=== PATIENT | male | born 1950 | race Caucasian/White ===

== ENCOUNTER 2020-11-16 06:37 | Observation (INO) | payer MEDICARE, OTHER ==
[~2020-11-16] VITALS: Ht 165.1 cm; Wt 93.4 kg
--- NOTE | ~2020-11-16 | OP ---
[address] [address] OPERATIVE REPORT Name: BRAD MELGAR Room: [address] Codi Guzman#: [id number] Admission: 11/16/20 Attend Phys: Tameka Troncoso DO Discharge: 11/17/20 Date of : 46 Report #: [id number] THIS REPORT FOR: cc: HOLLI MESSER Physician not on staff ~ Tameka Troncoso DO DICTATED BY: Zay Garcia DO DATE OF SERVICE: 11/16/2020 PREOPERATIVE DIAGNOSIS: Umbilical hernia, incarcerated. POSTOPERATIVE DIAGNOSIS: Umbilical hernia, incarcerated. PROCEDURE PERFORMED: Repair of incarcerated umbilical hernia with mesh and partial omentectomy. PRIMARY SURGEON: Tameka Troncoso DO [employer] DEAN: Zay Garcia, PGY5 and Tano Yadav, PGY4 ESTIMATED BLOOD LOSS: 5 mL. SPECIMEN: Hernia sac and contents. COMPLICATIONS: None. INDICATIONS: The patient is a 70-year-old male that presented with painful enlarging bulge at his umbilicus. He was unable to reduce it. He was informed of the risks and benefits of umbilical hernia repair with mesh. He understood the risks and decided to proceed with surgery. DESCRIPTION OF PROCEDURE: After informed consent was obtained, the patient was brought to the operating room and placed in supine position. SCDs were on and running. Preoperative antibiotics were given. General anesthesia was administered. The patient was prepped and draped in the usual sterile fashion. A surgical pause was held to confirm proper patient and procedure. Infraumbilical skin was anesthetized with 0.5% Marcaine. An elliptical portion of skin inferior to the umbilicus was incised using a #15 blade. The skin was excised. The hernia sac was dissected free from the umbilical skin using cautery. The hernia sac was dissected free from surrounding tissue using cautery. Once the hernia sac was entered, the omental contents were removed. They were attempted to reduce back into the abdomen; however, the defect was too small. A partial omentectomy was performed and the omental stump was returned into the abdomen. The hernia sac was excised revealing about a 1 [place] [address] OPERATIVE REPORT Name: BRAD MELGAR Epi Room: [address]#: [id number] Admission: 11/16/20 Attend Phys: Tameka Troncoso DO Discharge: 11/17/20 Date of : 46 Report #: [id number] defect. Finger sweep was performed. There were no intraabdominal adhesions. A 4.[address] mesh was selected, hydrated, and inserted into the abdomen. It was secured in a 4-point fashion using 0 Prolene. The defect was closed with a [id number] using 0 Prolene, incorporating some of the mesh as well as additional interrupted sutures incorporating some of the mesh. This closed the defect in a tension-free manner to protect the thin umbilical skin from the Prolene knots. A flap of subcutaneous fat was created using cautery. This was secured over the knots using 3-0 Vicryl interrupted sutures. The wound was then closed in layered fashion using 3-0 Vicryl and 4-0 Monocryl. The wound was cleansed and dressed with Mastisol, Steri-Strips, a 4 x 4 bolster and a Tegaderm. The patient was emerged from anesthesia. The remainder of the 0.5% Marcaine was injected prior to dressings. All counts were correct. He was emerged from anesthesia and transferred to PACU in stable condition. By: [id number] Troncoso DO /lew
--- NOTE | ~2020-11-16 | H ---
[address] [address] HISTORY AND PHYSICAL Name: BRAD MELGAR Room: [address] Codi Guzman#: [id number] Admission: 11/16/20 Attend Phys: Tameka Troncoso DO Discharge: 11/17/20 Date of : 46 Report #: [id number] THIS REPORT FOR: cc: HOLLI MESSER Physician not on staff ~ [facility],Medical Records Staff Please refer to the History and Physical performed in the physician's office. By: [id number] Records Staff [facility] /COURTNEY
[~2020-11-16 06:37] MED LIST: DOCUSATE SODIU100 M1 PO; GLUCOSAMINE-CH1 EA28 PO; LEVOTHYROXINE125 MC1 PO; OSTEO BI-FLEX1 EAC1 PO; PUB MULTIVITAM1 EACH PO; ROSUVASTATIN CA10 MG PO
[2020-11-16 06:55] LABS: HEMATOCRIT 44.9 % (42.0-52.0); HEMOGLOBIN 15.3 gm/dL (14.0-18.0); MCH 32.1 pg (26.0-34.0); MCHC 34.1 g/dL (28.0-37.0); MCV 94.1 fL (80.0-100.0); MPV 6.9 fl. (7.2-11.1); RBC 4.77 mil/uL (4.50-6.00); RDW-CV 13.3 % (10.5-14.5); WBC 4.4 thou/uL (4.0-11.0)
[2020-11-16 07:12] LABS: CALCIUM 9.4 mg/dL (8.5-10.1); CREATININE 1.3 mg/dL (0.6-1.3); POTASSIUM 4.4 mmol/L (3.5-5.1)
[2020-11-16 08:56] VITALS: BP 139/77
[2020-11-16 09:10] VITALS: BP 124/76
--- NOTE | 2020-11-16 10:35 | EKG ---
[place] [address] ELECTROCARDIOGRAM REPORT Name: BRAD MELGAR [address] [id number] Admission: 11/16/20 Attend Phys: Tameka Troncoso, Discharge: Date of : 46 Date of Service: 11/16/20 0715 Report #: [id number] THIS REPORT FOR: //name// [facility] Test Date: 2020-11-16 Test Time: 07:15:49 Pat Name: BRAD MELGAR Department: Room: [facility] Gender: M Spa Manager: JAZMIN : 1950 Requested By: Tameka Troncoso Order Number: [id number] Horacio MD: Glenn Soto Measurements Intervals [place] Rate: 74 P: 62 VA: 162 QRS: 27 QRSD: 95 T: 32 QT: 366 QTc: 406 Interpretive Statements Sinus rhythm No previous ECG available for comparison Electronically Signed On 11-16-2020 10:35:42 PRINTED CIRCUIT DESIGNER by Glenn Soto [email or web address] <ELECTRONICALLY SIGNED> By: Glenn Soto MD, [facility] 11/16/20 1035 4 4 Glenn Soto MD, [facility] /EPI
[2020-11-16 16:00] VITALS: BP 121/71
[2020-11-16 20:00] VITALS: BP 132/69
[2020-11-17] VITALS: BP 101/49
[2020-11-17 04:00] VITALS: BP 115/70
[2020-11-17 07:30] VITALS: BP 125/78
[2020-11-17 08:50] VITALS: BP 115/70
== END 2020-11-17 10:00 | disposition home or self-care (01) ==
LOC: M.TBA 06:37 → M.3W 06:37 → M.TBA 06:37 → M.PRE 07:54 → M.3W 09:26 → M.PRE 09:55 → M.3W 11-17 10:00
PROVIDERS: ADMIT Surgery; ATTEND Surgery
DX: K42.0 Umbilical hernia with obstruction, without gangrene (principal); Z79.899 Other long term (current) drug therapy